=== PATIENT | male | born 1990 | race African-American/Black ===

== ENCOUNTER 2023-07-10 18:02 | Emergency (ER) | payer SELFPAY ==
[2023-07-10 18:13] VITALS: BP 116/104
--- NOTE | 2023-07-10 18:28 | ED.GENMED ---
History of Present Illness
General
Chief Complaint: Substance Abuse
Source: patient, ambulance crew and police
Time Seen by Provider: 07/10/23 18:04
Travel History
Have you had any contact with someone who has COVID-19?: Unable to Answer
Do you have any symptoms of coronavirus? Fever > 100 degrees, chills, cough, shortness of breath, sore throat, loss of taste or smell, muscle aches, or headache?: Unable to Answer
History of Present Illness
History of Present Illness:
33-year-old individual brought to the emergency room by both police and ambulance after being observed intoxicated. Per police patient evidently had gotten off a train. Patient was observed attempting to get into a closed restaurant, yelling and
acting erratically. Patient was observed by police to have a bottle of vodka which appeared to be two thirds empty. Patient endorsed having consumed the vodka to the police. Here in the emergency room the patient is unhappy that he is here. He
wishes to be on his way home. Please state they have spoken to the patient's mother and she is on her way here to pick him up. Patient denies any medical complaints. When he learned that his mother was on his way to pick him up he became upset
and crying. Patient states he had a court date today and he is upset with the results.
Phy Exam
Physical Exam
Physical Exam:
General: Awake, Alert, Oriented X3. Intoxicated, agitated
Vitals: unremarkable
Head: Atraumatic
Eyes: Pupils equal, EOMI
Neuro: Nonfocal
Skin: Warm, dry, no rash
Extremities: pulses equal b/l, no edema
Course
Vital Signs
Initial and Last Documented VS:
Initial Vital Signs
Temp Pulse Resp BP Pulse Ox
98 F 84 16 116/104 97
07/10/23 18:13 07/10/23 18:13 07/10/23 18:13 07/10/23 18:13 07/10/23 18:13
Last Documented Vital Signs
Temp Pulse Resp BP Pulse Ox
98 F 84 16 116/104 97
07/10/23 18:13 07/10/23 18:13 07/10/23 18:13 07/10/23 18:13 07/10/23 18:13
MDM/Problems Addressed
MDM/Problems Addressed:
Patient brought due to intoxication and acting somewhat erratically. Here in the emergency room initially seemed as if he would be calm and cooperative waiting for his mother to pick him up. However he became agitated and was repeatedly describing
how he felt he was mistreated on and off the train. He does not want a wait for his mom and is attempting to leave the room. Given his level of intoxication and the fact his home is in [place], quite far from here I do not believe it is safe for
him to leave the emergency department without someone that can drive him home and take responsibility for him. Olesya, one of the nurses, all for the patient something to drink and asked to confirm his name and birthdate for registration. For some
reason this became particularly upsetting to the patient and he began cursing at Olesya. At this point the patient had come out into the hallway. Despite a calm and reassuring voice, multiple verbal requests and explanations as to why it is not
appropriate for him to be yelling in the mark the patient was guided into the room and onto the bed. At this point security had arrived and will help keep the patient in his room. He is quite agitated and if he does not come down he may require
sedation. I would like to avoid this so that he is in a state where his mother can take him home.
Despite multiple attempts at de-escalation the patient continued to be quite verbally abusive, screaming as loud as he could. Patient states he was trying to be as disruptive as possible. I again considered sedation but the reality of the
situation is the patient is here with moderate intoxication and behavior which is unacceptable in the emergency room. There is no evidence for any acute medical issue. We offered him food and soda but he is refused to excepted. Patient's last
Accu-Chek was 65 which is normal. I shall chemically restraining this individual is not appropriate as it would be purely for behavioral control. He is not suicidal. He is not homicidal. He does not have a medical condition which requires acute
intervention. Therefore security called for the assistance of the police to see if this would help de-escalate the situation. Unfortunately the patient continued to be quite agitated and disruptive. The police will arrest the patient for
disorderly conduct. He is medically clear from my perspective. His only diagnosis is intoxication. He is not so intoxicated he is unsafe to be discharged to detention.
*Critical Care Note
Total Time (30-74mins, 75-104mins- exclusive of procedures): Not Applicable
ED Attending Note
-
Portions of this chart may have been created with voice recognition software.� Occasional wrong word or��sound alike� substitutions may have occurred due to the inherent limitations of voice recognition software.
Discharge Plan
Departure
Patient Disposition: Shelter
Date of Disposition: 07/10/23
Time of Disposition: 19:44
Condition: Good
Discharge Problem:
Alcohol intoxication
Interventions
Interventions:
*Risk Screen - Suicide Last Done: 07/10/23 18:17
*General Assessment Last Done: 07/10/23 18:16
*Neglect/Abuse Screening Last Done: 07/10/23 18:17
ED- Fall Risk Assessment Last Done: 07/10/23 19:06
*ED COVID-19 Vaccine History Last Done: 07/10/23 18:16
*Nursing Disposition Last Done: 07/10/23 19:06
ED-Psychological Assessment Last Done: 07/10/23 18:18
Discharge Date and Time
Print Language: FRENCH
--- NOTE | 2023-07-10 18:54 | EDRN ---
Pt becoming increasingly more agitated, security and MD at bedside trying to verbally di-escalate the situation. Pt pending pickup by family. Pt is verbally abusive, cursing at staff, yelling and screaming.
--- NOTE | 2023-07-10 19:06 | EDRN ---
Pt was arrested for behavior, left in police custody.
== END 2023-07-10 19:06 ==
LOC: EMR 18:02
PROVIDERS: EMERGENCY PHYSICIAN Emergency Medicine
DX: F10.129 Alcohol abuse with intoxication, unspecified (principal); R45.1 Restlessness and agitation; Z65.3 Problems related to other legal circumstances
CPT/HCPCS: 99283